=== PATIENT | male | born 2000 | race Caucasian/White ===

== ENCOUNTER 2025-03-07 19:36 | Emergency (ER) | payer OTHER ==
[~2025-03-07] VITALS: Ht 172.7 cm; Wt 81.6 kg
[2025-03-07] MEDS ORDERED: IBUP-1953 PO (20:54)
[2025-03-07 21:46] VITALS: BP 126/80; TEMP 98.1; O2SAT 98
== END 2025-03-07 21:12 | disposition home or self-care (01) ==
LOC: ER 19:41
DX: M54.2 Cervicalgia (principal); M54.50 Low back pain, unspecified; V43.02XA Car driver injured in collision with other type car in nontraffic accident, initial encounter; Y93.89 Activity, other specified; Y92.415 Exit ramp or entrance ramp of street or highway as the place of occurrence of the external cause; Y99.8 Other external cause status
CPT/HCPCS: 72040-TC; 72070-TC